=== PATIENT | male | born 1970 | race African-American/Black ===

== ENCOUNTER 2021-02-25 11:18 | Emergency (ER) | payer OTHER, SELFPAY ==
[2021-02-25 11:35] VITALS: BP 149/71; PULSE 55; RESP 16; TEMP 37.1; O2SAT 100
[2021-02-25] MEDS: AZITHROMYCIN 250 MG TABLET 1000 MG PO (12:23)
[2021-02-25] MEDS: cefTRIAXone 250 MG VIAL 500 MG IM (12:25)
--- NOTE | 2021-02-25 12:25 | ED.MALEGU ---
HPI - Male Genitourinary General Chief complaint: Urogenital-Male Stated complaint: STD Testing Time Seen by Provider: 02/25/21 11:56 Source: patient and RN notes reviewed Mode of arrival: ambulatory Limitations: no limitations History of Present Illness HPI Narrative: Patient presents today complaining of tingling in his penis, intermittent left testicular pain x1 week. States he had chlamydia many years ago and believes he may have chlamydia again. He has had recent unprotected intercourse. He has 1 female partner but states he does not have a relationship with his partner where they have agreed to notify each other if they have any STIs. Denies penile discharge, dysuria, hematuria, penile pain. MD Complaint: testicle pain Related Data Allergies Allergy/AdvReac Type Severity Reaction Status Date / Time No Known Allergies Allergy Verified 02/25/21 12:20 Review of Systems Review of Systems: Narrative: CONSTITUTIONAL: Denies body aches, fever, chills, or sweats. EYES: Denies visual changes, redness, or discharge. ENT: Denies rhinorrhea, congestion, sore throat, or otalgia. CARDIOVASCULAR: Denies chest pain, palpitations, or edema. RESPIRATORY: Denies cough or dyspnea. GASTROINTESTINAL: Denies abdominal pain, nausea, vomiting, or diarrhea. GENITOURINARY: Denies dysuria or hematuria.+ Intermittent left testicular pain, tingling in the penis SKIN: Denies rash, itching, or wounds. MUSCULOSKELETAL: Denies back pain, joint pain, or myalgia. NEUROLOGIC: Denies headache, numbness, tingling, or weakness. PSYCH: Denies depression or anxiety. PMFSH Comments At time of signature, I have reviewed and agree with nursing past medical, surgical, social and family history unless otherwise noted. Please see nursing chart for further information. There is no relevant family history pertinent to the presenting complaint Exam Narrative: Exam Narrative: GENERAL: Well-appearing, well-nourished, and in no acute distress. HEAD: Normocephalic, atraumatic. EYES: EOMI. No redness or drainage. Conjunctivae normal. ENT: Mucous membranes pink and moist. NECK: Normal AROM. CHEST: No respiratory distress. : Penis nontender with small amount of clear drainage from the urethra. No lesions or ulcerations noted to the penis. Left testicle is slightly tender to palpation without edema. Right testicle is nontender without edema. No swelling to the scrotum. MUSCULOSKELETAL: No bony tenderness. EXTREMITIES: Normal range of motion. No edema. SKIN: Warm, dry, no rash. Capillary refill normal. Normal skin turgor. NEURO: No focal deficits. Alert and oriented x3. Gait steady. PSYCH: Normal affect. No signs of depression or anxiety. Exam chaperoned by Sandip, RT Course Vital Signs Vital signs: Vital Signs Temperature 98.7 F 02/25/21 11:35 Pulse Rate 55 L 02/25/21 11:35 Respiratory Rate 16 02/25/21 11:35 Blood Pressure 149/71 H 02/25/21 11:35 Pulse Oximetry 100 02/25/21 11:35 Temperature 98.7 F 02/25/21 11:35 Pulse Rate 55 L 02/25/21 11:35 Respiratory Rate 16 02/25/21 11:35 Blood Pressure 149/71 H 02/25/21 11:35 Pulse Oximetry 100 02/25/21 11:35 Reviewed. Pt has been instructed to follow up with his PCP regarding his elevated blood pressure today. MDM - Male Genitourinary Differential Diagnosis Differential diagnosis: Likely urinary tract infection, urethritis, epididymitis and other (Gonorrhea, chlamydia, trichomonas) Critical Care Time Critical Care Time Critical Care Time: No Discharge Plan Discharge Clinical Impression: Encounter for screening for infections with a predominantly sexual mode of transmission Patient Disposition: Home, Self-Care Condition: Stable Instructions: Chlamydia (ED), Gonorrhea (ED), Trichomoniasis (ED) Additional Instructions: Your urine sample has been sent off to test for gonorrhea, chlamydia, and trichomonas infections. These tests can take up to 5-7 days to
[2021-02-25] MEDS: LIDOCAINE HCL 1% LOCAL INJ 20 ML VIAL IM (12:26)
== END 2021-02-25 12:49 | disposition home or self-care (01) ==
PROVIDERS: Emergency Provider Nurse Practitioner
DX: Z11.3 Encounter for screening for infections with a predominantly sexual mode of transmission (principal)
CPT/HCPCS: 87491; 87591; 87661; 96372; 99213; A9270; G0463; J0696

== ENCOUNTER 2021-10-20 10:55 | Emergency (ER) | payer OTHER, SELFPAY ==
[2021-10-20 11:05] VITALS: BP 140/78; PULSE 62; RESP 16; TEMP 36.2; O2SAT 100
[2021-10-20 11:09] VITALS: BP 140/78; PULSE 62; RESP 16; TEMP 36.2; O2SAT 100
--- NOTE | 2021-10-20 11:12 | ED.MALEGU ---
HPI - Male Genitourinary General Chief complaint: Urogenital-Male Stated complaint: std test Time Seen by Provider: 10/20/21 11:12 Source: patient History of Present Illness HPI Narrative: Patient here for concern for possible STD exposure. Patient has no known exposure. Patient states he has a new partner and has had unprotected intercourse with this partner. Patient states his symptoms have been going on for a few months. Patient denies any penile drainage no penile lesions no discomfort to the penile area. Patient denies any abdominal pain, no flank pain no gross hematuria. Patient states at times his urine is frothy and is concerned that it might just be a urinary tract infection Related Data Home Medications Medication Instructions Recorded Confirmed No Home Medications 10/20/21 10/20/21 Allergies Allergy/AdvReac Type Severity Reaction Status Date / Time No Known Allergies Allergy Verified 10/20/21 11:01 Review of Systems Review of Systems: CONSTITUTIONAL: Denies fever, chills, or sweats. EYES: Denies visual changes, redness, or discharge. ENT: Denies rhinorrhea, congestion, sore throat, or otalgia. CARDIOVASCULAR: Denies chest pain, palpitations, or edema. RESPIRATORY: Denies cough or dyspnea. GASTROINTESTINAL: Denies abdominal pain, nausea, vomiting, or diarrhea. GENITOURINARY: Denies dysuria or hematuria. SKIN: Denies rash or itching. MUSCULOSKELETAL: Denies back pain, joint pain, or myalgia. NEUROLOGIC: Denies headache, numbness, or weakness. PSYCHIATRIC: Denies anxiety or depression. PMFSH Social History Social History Gender identity (if verbalized by the patient): Male Comments At time of signature, agree with nursing past medical, surgical, social and family history. There is no relevant family history pertinent to the presenting complaint Exam Narrative: GENERAL: Well-appearing, well-nourished, and in no acute distress. HEAD: Normocephalic, atraumatic. EYES: PERRLA and EOMI. ENT: Nares clear, no rhinorrhea or epistaxis. Mucous membranes moist. NECK: Supple. CHEST: Clear to auscultation. No respiratory distress. HEART: Regular rate and rhythm. No murmur heard. Normal peripheral pulses. ABDOMEN: Soft, nontender, nondistended, normal active bowel sounds. EXTREMITIES: Normal range of motion. No edema. SKIN: Warm, dry, no rash. NEURO: No focal deficits. Alert and oriented x3. [place] Coma Scale Eye Opening: Spontaneous 4 [place] Coma Scale Motor: Obeys Commands 6 [place] Coma Scale Verbal: Oriented 5 [place] Coma Scale Total 15 Course Course Level of Care: Express Care Visit Vital Signs Vital signs: Vital Signs Temperature 36.2 C L 10/20/21 11:05 Pulse Rate 62 10/20/21 11:05 Respiratory Rate 16 10/20/21 11:05 Blood Pressure 140/78 10/20/21 11:05 Pulse Oximetry 100 10/20/21 11:05 Temperature 36.2 C L 10/20/21 11:09 Pulse Rate 62 10/20/21 11:09 Respiratory Rate 16 10/20/21 11:09 Blood Pressure 140/78 10/20/21 11:09 Pulse Oximetry 100 10/20/21 11:09 Addressed elevated BP today. Today's blood pressure higher than recommended range. Discussed importance of follow -up with PCP and possible oysterman effects/cardiovascular events related to HTN. Currently patient denies headache, dizziness, vision changes, CP or shortness of breath. Critical dx considered and discussed with pt. Educated patient on red flag s/s and to go to ED if s/s occur. Discussed with pt when to return to Express Care or primary care provider. Pt gave verbal undertstanding, all questions were answered, and pt was agreeable to plan MDM - Male Genitourinary Differential Diagnosis Differential diagnosis: Likely urinary tract infection, priapism, urethritis, epididymitis, genital herpes simplex, prostatitis, acute retention of urine and inguinal hernia Critical Care Time Critical Care Time Critical Care Time: No Discharge Plan Discharge Clinical Impression: Concern about STD i
--- NOTE | 2021-10-20 15:01 | PC.NURSE ---
1250 noted pt remained in express care for extended time because he could not give a urine sample until water intake increased.
== END 2021-10-20 12:50 | disposition home or self-care (01) ==
PROVIDERS: Emergency Provider Nurse Practitioner Family
DX: Z20.2 Contact with and (suspected) exposure to infections with a predominantly sexual mode of transmission (principal)
CPT/HCPCS: 81003; 87086; 87491; 87591; 87661; 99213; G0463

== ENCOUNTER 2023-02-28 13:54 | Emergency (ER) | payer OTHER, SELFPAY ==
[2023-02-28 14:00] VITALS: BP 148/75; PULSE 76; RESP 16; TEMP 36.4; O2SAT 100
--- NOTE | 2023-02-28 14:05 | ED.GENADULT ---
HPI - General Adult General Chief complaint: Unspecified Stated complaint: STD Exposure Source: patient and RN notes reviewed History of Present Illness HPI narrative: 52 yo M Presents to urgent care stating he is in a new relationship and he believes his body is reacting a different way than usual. Pt reports having a sensation that something is moving inside him. Pt reports having a pain to his left flank area that will radiate to his left knee. Pt states he then will feel the sensation in his penis. Denies any penile discharge, rash, blisters, abdominal pain, back pain, fevers, chills, or dysuria. Pt states the pain will sometimes go to his testicles, denies any pain at this time. Related Data Home Medications Medication Instructions Recorded Confirmed No Home Medications 10/20/21 02/28/23 Allergies Allergy/AdvReac Type Severity Reaction Status Date / Time No Known Allergies Allergy Verified 02/28/23 14:11 Review of Systems Review of Systems: Pertinent positives and pertinent negatives per HPI. PMFSH Social History Social History Gender identity (if verbalized by the patient): Male Comments At the time of my signature, I reviewed and agree with the nursing past medical, surgical, social, and family history. There is no relevant family history pertinent to the patient complaint. Exam Narrative: GENERAL: This is a well-nourished, well-developed patient, in no apparent distress. HEAD: normocephalic, atraumatic. EYES: Sclera clear/white. Vision is grossly intact. EARS: External ears normal, auditory canals clear and without drainage. Hearing grossly intact. NOSE: External nose normal with no obvious nasal discharge, nares without redness, no rhinorrhea. THROAT: Mucous membranes moist, posterior pharynx clear. NECK: Neck supple, non-tender without lymphadenopathy, masses or thyromegaly. CARDIOVASCULAR: Regular rate and rhythm without murmurs, gallops, or rubs. RESPIRATORY: Clear to auscultation. Breath sounds equal bilaterally. No wheezes, rales, or rhonchi. GASTROINTESTINAL: Abdomen soft, non-tender, nondistended. Bowel sounds are active. No hepato-splenomegaly, or palpable masses. No guarding. SKIN: warm, intact with no suspicious lesions or rash, good texture and turgor. NEURO: awake, alert, and oriented to person, place and time. There were no obvious focal neurologic abnormalities. EXTREMITIES: No clubbing, cyanosis, or edema. No joint tenderness, effusion, or edema noted. BACK: Nontender without deformity or crepitus. No flank tenderness. Course Course Level of Care: Express Care Visit Vital Signs Vital signs: Vital Signs Temperature 97.6 F 02/28/23 14:00 Pulse Rate 76 02/28/23 14:00 Respiratory Rate 16 02/28/23 14:00 Blood Pressure 148/75 H 02/28/23 14:00 Pulse Oximetry 100 02/28/23 14:00 Oxygen Delivery Room Air 02/28/23 14:00 Temperature 97.6 F 02/28/23 14:00 Pulse Rate 76 02/28/23 14:00 Respiratory Rate 16 02/28/23 14:00 Blood Pressure 148/75 H 02/28/23 14:00 Pulse Oximetry 100 02/28/23 14:00 Oxygen Delivery Room Air 02/28/23 14:00 Reviewed Medical Decision Making MDM Narrative Medical decision making narrative: UA is negative for hematuria. Pt is NAD. VSS. Pt treated prophylactically for gonorrhea and chlamydia. You have been treated for gonorrhea and chlamydia in clinic. You will receive a phone call if any tests come back positive and/or if you need any additional treatment. If you begin to have anymore flank, testicle pain, or abdominal pain, you need to go the emergency dept for further evaluation. Differential Diagnosis Differential Diagnosis: STI, UTI, nephrolithiasis Vital Signs Vital Signs: Vital Signs Temperature 97.6 F 02/28/23 14:00 Pulse Rate 76 02/28/23 14:00 Respiratory Rate 16 02/28/23 14:00 Blood Pressure 148/75 H 02/28/23 14:00 Pulse Oximetry 100 02/28/23 14:00 Oxygen Delivery Room
[2023-02-28] MEDS: AZITHROMYCIN 250 MG TABLET 1000 MG PO (14:32)
[2023-02-28] MEDS: cefTRIAXone 500 MG, LIDOCAINE HCL 1% LOCAL INJ 1 ML IM (14:33)
== END 2023-02-28 14:44 | disposition home or self-care (01) ==
PROVIDERS: Emergency Provider Nurse Practitioner Family
DX: Z11.3 Encounter for screening for infections with a predominantly sexual mode of transmission (principal); R10.9 Unspecified abdominal pain
CPT/HCPCS: 81003; 87491; 87591; 87661; 96372; 99213; A9270; G0463; J0696